=== PATIENT | female | born 1985 | race Caucasian/White ===

== ENCOUNTER 2018-04-21 11:09 | Emergency (ER) | payer OTHER ==
[~2018-04-21] VITALS: Ht 160 cm; Wt 96.8 kg
[2018-04-21] MEDS ORDERED: ONDANSETRON ODT 4 MG PO ONE (12:00)
[2018-04-21] MEDS ORDERED: SODIUM CHLORIDE 0.9% 1,000ML IVBOLUS ONE (12:00)
[2018-04-21] MEDS ORDERED: SODIUM CHLORIDE FLUSH 10ML SYR IVF ONE (12:00)
[2018-04-21] MEDS ORDERED: MORPHINE SULFATE 4 MG/ML, 1ML IVPush PRN (12:00)
[2018-04-21] MEDS ORDERED: MORPHINE SULFATE 4 MG/ML, 1ML ONE (12:10)
[2018-04-21] MEDS ORDERED: ONDANSETRON ODT 4 MG ONE (12:10)
[2018-04-21 12:20] LABS: BASOPHILS # (AUTO) 0.07 x10^3/uL (0-0.1); BASOPHILS % (AUTO) 1 % (0-1); EOSINOPHILS # (AUTO) 0.11 x10^3/uL (0-0.4); EOSINOPHILS % (AUTO) 1 % (1-7); LYMPHOCYTES # (AUTO) 1.84 x10^3/uL (1-3.4); LYMPHOCYTES % (AUTO) 22 % (22-44); MD NO; MEAN CORPUSCULAR HEMOGLOBIN 23.8 pg (27.0-34.8); MEAN CORPUSCULAR HGB CONC 31.8 g/dL (32.4-35.8); MEAN CORPUSCULAR VOLUME 74.8 fL (80-100); MEAN PLATELET VOLUME 8.3 fL (7.4-10.4); MONOCYTES # (AUTO) 0.45 x10^3/uL (0.2-0.8); MONOCYTES % (AUTO) 5 % (2-9); NEUTROPHILS # (AUTO) 5.84 x10^3/uL (1.8-6.8); NEUTROPHILS % (AUTO) 70 % (42-75); PLATELET COUNT 358 x10^3/uL (130-400); RED BLOOD COUNT 5.01 x10^6/uL (3.82-5.3); RED CELL DISTRIBUTION WIDTH 17.3 % (9.6-15.2)
[2018-04-21 15:04] VITALS: BP 126/59
== END 2018-04-21 15:06 | disposition home or self-care (01) ==
LOC: ED 14:32
DX: N83.02 Follicular cyst of left ovary (principal); N83.01 Follicular cyst of right ovary; N93.9 Abnormal uterine and vaginal bleeding, unspecified
CPT/HCPCS: 36415; 74177; 76830; 84702; 85025; 86901; 96374; 99285; J7030; Q0162

== ENCOUNTER 2018-05-14 07:27 | Emergency (ER) | payer OTHER ==
[~2018-05-14] VITALS: Ht 160 cm; Wt 93.6 kg
[2018-05-14 07:31] VITALS: BP 136/94
[2018-05-14] MEDS ORDERED: IBUPROFEN 200 MG TABLET PO ONE (08:00)
[2018-05-14] MEDS ORDERED: IBUPROFEN 800 MG TABLET ONE (08:07)
== END 2018-05-14 09:42 | disposition home or self-care (01) ==
LOC: ED 09:40
DX: M25.461 Effusion, right knee (principal); M19.90 Unspecified osteoarthritis, unspecified site; W10.9XXA Fall (on) (from) unspecified stairs and steps, initial encounter; Y93.89 Activity, other specified; Y92.009 Unspecified place in unspecified non-institutional (private) residence as the place of occurrence of the external cause; Y99.8 Other external cause status
CPT/HCPCS: 99283

== ENCOUNTER → 2018-05-31 | Outpatient (CLI) | payer OTHER | END | disposition home or self-care (01) | LOC: CFH 12:24 | PROVIDERS: ATTEND Physician Assistant Surgical | DX: M65.861 Other synovitis and tenosynovitis, right lower leg (principal); M25.461 Effusion, right knee; R60.0 Localized edema ==

== ENCOUNTER → 2018-07-13 | Outpatient (CLI) | payer OTHER ==
[~2018-07-13] MED LIST: AMIT25TA PO; CERT400S SC
== END | disposition home or self-care (01) ==
LOC: STAR 08:08
PROVIDERS: ATTEND Orthopaedic Surgery
DX: Z02.9 Encounter for administrative examinations, unspecified (principal)

== ENCOUNTER 2018-07-19 06:03 | Day surgery (SDC) | payer OTHER ==
[2018-07-13 08:35] VITALS: BP 138/88
[~2018-07-19] VITALS: Ht 160 cm; Wt 89.3 kg
[2018-07-19] MEDS ORDERED: ROPIvacaine/PF 0.5%, 30 ML ONE (06:23)
[2018-07-19] MEDS ORDERED: LIDOCAINE 1%-EPI 1:100K, 30ML ONE (06:24)
[2018-07-19] MEDS ORDERED: LACTATED RINGERS 1,000 ML IV SCH (06:39)
[2018-07-19] MEDS ORDERED: MIDAZOLAM 1 MG/ML, 2ML ONE (07:25)
[2018-07-19] MEDS ORDERED: FENTANYL PF 100 MCG/2ML ONE ×3 (07:25→09:49)
[2018-07-19 07:26] LABS: HCG UR SG 1.026 (1.003-1.030)
[2018-07-19] MEDS ORDERED: DEXAMETHASONE 4 MG/ML, 1ML ONE (07:46)
[2018-07-19] MEDS ORDERED: ONDANSETRON 2MG/ML, 2ML ONE (07:46)
[2018-07-19] MEDS ORDERED: PROPOFOL 10 MG/ML, 20ML ONE (07:46)
[2018-07-19] MEDS ORDERED: PROPOFOL 10 MG/ML, 50ML ONE (07:46)
[2018-07-19] MEDS ORDERED: CEFAZOLIN 1,000 MG ONE (07:46)
[2018-07-19] MEDS ORDERED: ONDANSETRON 2MG/ML, 2ML IV PRN (08:30)
[2018-07-19] MEDS ORDERED: MORPHINE SULFATE 4 MG/ML, 1ML IVPush PRN (08:30)
[2018-07-19] MEDS ORDERED: PROMETHAZINE 25 MG SUPP PR PRN (08:30)
[2018-07-19] MEDS ORDERED: DIPHENHYDRAMINE 50 MG/ML, 1ML IVPush PRN (08:30)
[2018-07-19] MEDS ORDERED: ACETAMINOPHEN 325 MG TABLET PO PRN (08:30)
[2018-07-19] MEDS ORDERED: EPHEDRINE 50 MG/ML, 1ML IVPush PRN (08:30)
[2018-07-19] MEDS ORDERED: OXYcodone 5 MG/5 ML ORAL.SOL UDC PO PRN (08:30)
[2018-07-19] MEDS ORDERED: PROMETHAZINE 12.5 MG SUPP PR PRN (08:30)
[2018-07-19] MEDS ORDERED: MEPERIDINE/PF 25MG/0.5ML IVPush PRN (08:30)
[2018-07-19] MEDS ORDERED: LABETALOL 5MG/ML, 20ML IV PRN (08:30)
[2018-07-19] MEDS ORDERED: ONDANSETRON ODT 8 MG PO PRN (08:30)
[2018-07-19] MEDS ORDERED: PROMETHAZINE 25 MG/ML, 1ML IV PRN (08:30)
[2018-07-19] MEDS ORDERED: EPHEDRINE 50 MG/ML, 1ML IM PRN (08:30)
[2018-07-19] MEDS ORDERED: FENTANYL PF 100 MCG/2ML IV PRN (08:30)
[2018-07-19] MEDS ORDERED: MIDAZOLAM 1 MG/ML, 2ML IV PRN (08:30)
[2018-07-19] MEDS ORDERED: ACETAMINOPHEN 650 MG/20.3 ML UDC ONE (09:49)
[2018-07-19] MEDS ORDERED: OXYcodone 5 MG/5 ML ORAL.SOL UDC ONE (09:50)
[2018-07-19 10:21] LABS: CELLS COUNTED 1728
== END 2018-07-19 11:45 | disposition home or self-care (01) ==
LOC: OUT 06:03
PROVIDERS: ATTEND Orthopaedic Surgery
DX: M94.261 Chondromalacia, right knee (principal); M65.861 Other synovitis and tenosynovitis, right lower leg; M06.861 Other specified rheumatoid arthritis, right knee; Z88.8 Allergy status to other drugs, medicaments and biological substances
CPT/HCPCS: 29876; 81025; 87070; 87075; 87205; 88112; 88305; 89051; 89060; J0690; J1100; J2250; J2405; J2704; J2795; J3010; J3490; J7120

== ENCOUNTER 2018-08-21 09:26 | Emergency (ER) | payer OTHER ==
[~2018-08-21] VITALS: Ht 160 cm; Wt 89.8 kg
[2018-08-21 09:54] LABS: BASOPHILS # (AUTO) 0.12 x10^3/uL (0-0.1); BASOPHILS % (AUTO) 1 % (0-1); EOSINOPHILS # (AUTO) 0.21 x10^3/uL (0-0.4); EOSINOPHILS % (AUTO) 3 % (1-7); LYMPHOCYTES # (AUTO) 2.32 x10^3/uL (1-3.4); LYMPHOCYTES % (AUTO) 28 % (22-44); MD NO; MEAN CORPUSCULAR HEMOGLOBIN 24.2 pg (27.0-34.8); MEAN CORPUSCULAR HGB CONC 31.7 g/dL (32.4-35.8); MEAN CORPUSCULAR VOLUME 76.5 fL (80-100); MEAN PLATELET VOLUME 7.8 fL (7.4-10.4); MONOCYTES # (AUTO) 0.43 x10^3/uL (0.2-0.8); MONOCYTES % (AUTO) 5 % (2-9); NEUTROPHILS # (AUTO) 5.37 x10^3/uL (1.8-6.8); NEUTROPHILS % (AUTO) 64 % (42-75); PLATELET COUNT 373 x10^3/uL (130-400); RED BLOOD COUNT 5.04 x10^6/uL (3.82-5.3); RED CELL DISTRIBUTION WIDTH 17.8 % (9.6-15.2)
[2018-08-21 10:05] LABS: ALBUMIN 3.4 g/dL (3.4-5.0); ANION GAP 5 mmol/L (5-15); CALCIUM 8.9 mg/dL (8.5-10.1); CHLORIDE 106 mmol/L (98-107); CREATININE 0.83 mg/dL (0.55-1.02)
--- NOTE | 2018-08-21 10:29 | NUR ---
Pt at ultrasound at this time.
--- NOTE | 2018-08-21 10:33 | NUR ---
First contact with pt. Per pt, "I am feeling like I have ovarian cysts, it started at 3 am, I have a history of them. The pain is mayda in the middle (periumbillical) and it goes to the right (RLQ) and the back (right flank). I have really bad nausea that comes in waves." Pt denies vomitting, diarrhea, cp, sob, trauma, or fever. All safety measures in place NADN. Pt connected to NIBP and continous pulse ox.
[2018-08-21 11:17] LABS: MICROSCOPIC NOT IND
[2018-08-21 11:24] LABS: CULTURE INDICATED? NO
[2018-08-21] MEDS ORDERED: ONDANSETRON ODT 4 MG PO ONE (11:30)
[2018-08-21] MEDS ORDERED: HYDROcodone/APAP 5/325 TABLET PO ONE (11:30)
--- NOTE | 2018-08-21 11:31 | NUR ---
Warm blankets provided for comfort measures.
[2018-08-21] MEDS ORDERED: ONDANSETRON ODT 4 MG ONE (11:45)
[2018-08-21] MEDS ORDERED: HYDROcodone/APAP 5/325 TABLET ONE (11:46)
[2018-08-21 11:49] VITALS: BP 124/91
--- NOTE | 2018-08-21 11:51 | NUR ---
Provided medications per EMAR. Pt appreciative. NADN. No other needs requested at this time. Pt's pain is a 6/10 in RLQ and R flank.
--- NOTE | 2018-08-21 12:36 | NUR ---
TASK RN: Patient/Caregiver given discharge instructions and they have confirmed that they understand the instructions. Patient ambulatory with steady gait.
== END 2018-08-21 12:52 | disposition home or self-care (01) ==
LOC: ED 11:11
DX: R10.31 Right lower quadrant pain (principal); R10.32 Left lower quadrant pain
CPT/HCPCS: 36415; 76830; 80048; 81003; 82040; 84703; 85025; 99284; Q0162

== ENCOUNTER → 2018-12-15 | Outpatient (CLI) | payer OTHER ==
[~2018-12-15] MED LIST changes: +CHOL100011 PO; +CYCL-259 PO; +MEDR150D3 INJ; +SERT100T PO
== END | disposition home or self-care (01) ==
LOC: STAR 08:52
PROVIDERS: ATTEND Orthopaedic Surgery
DX: Z02.9 Encounter for administrative examinations, unspecified (principal)

== ENCOUNTER 2018-12-20 10:48 | Day surgery (SDC) | payer OTHER ==
[~2018-12-20] VITALS: Ht 160 cm; Wt 84.6 kg
[~2018-12-20 10:48] MED LIST changes: +CEFAZOLIN 1,000 MG ONE; +DEXAMETHASONE 4 MG/ML, 1ML ONE; +FENTANYL PF 250 MCG/5ML ONE; +KETOROLAC 30 MG/1 ML ONE; +LIDOCAINE 1%-EPI 1:100K, 50ML ONE; +MIDAZOLAM 1 MG/ML, 2ML ONE; +ONDANSETRON 2MG/ML, 2ML ONE; +PROPOFOL 10 MG/ML, 20ML ONE; +ROPIvacaine/PF 0.5%, 30 ML ONE; +SODIUM CHLORIDE 0.9% PF 10ML ONE
[2018-12-20] MEDS ORDERED: SCOPOLAMINE PATCH, 1.5MG PATCH.TD72 TD ONE (10:57)
[2018-12-20] MEDS ORDERED: HALOPERIDOL 5 MG/ML IV PRN (11:00)
[2018-12-20] MEDS ORDERED: PROMETHAZINE 12.5 MG SUPP PR PRN (11:00)
[2018-12-20] MEDS ORDERED: hydrALAzine 20 MG/ML, 1ML IV PRN (11:00)
[2018-12-20] MEDS ORDERED: PROMETHAZINE 25 MG/ML, 1ML IV PRN (11:00)
[2018-12-20] MEDS ORDERED: ONDANSETRON 2MG/ML, 2ML IV PRN (11:00)
[2018-12-20] MEDS ORDERED: HYDROmorphone 2 MG/ML, 1ML IVPush PRN (11:00)
[2018-12-20] MEDS ORDERED: PROMETHAZINE 25 MG/ML, 1ML IM PRN ×2 (11:00)
[2018-12-20] MEDS ORDERED: LABETALOL 5MG/ML, 20ML IV PRN (11:00)
[2018-12-20] MEDS ORDERED: MEPERIDINE/PF 25MG/0.5ML IVPush PRN (11:00)
[2018-12-20] MEDS ORDERED: PROMETHAZINE 25 MG SUPP PR PRN (11:00)
[2018-12-20] MEDS ORDERED: ACETAMINOPHEN 325 MG TABLET PO PRN ×2 (11:00→14:00)
[2018-12-20] MEDS ORDERED: OXYcodone 5 MG/5 ML ORAL.SOL UDC PO PRN (11:00)
[2018-12-20] MEDS ORDERED: ONDANSETRON ODT 8 MG PO PRN (11:00)
[2018-12-20] MEDS ORDERED: MORPHINE SULFATE 4 MG/ML, 1ML IVPush PRN (11:00)
[2018-12-20 11:02] VITALS: BP 136/90
[2018-12-20] MEDS ORDERED: LACTATED RINGERS 1,000 ML IV SCH (11:05)
[2018-12-20 11:37] LABS: HCG UR SG 1.029 (1.003-1.030)
[2018-12-20] MEDS ORDERED: FENTANYL PF 100 MCG/2ML ONE ×2 (13:21→13:52)
[2018-12-20] MEDS ORDERED: OXYcodone 5 MG/5 ML ORAL.SOL UDC ONE (13:22)
[2018-12-20] MEDS ORDERED: ACETAMINOPHEN 650 MG/20.3 ML UDC ONE (13:22)
[2018-12-20] MEDS ORDERED: ACETAMINOPHEN 325 MG TABLET ONE (13:23)
[2018-12-20] MEDS: FENTANYL PF 100 MCG/2ML IV PRN ×2 (13:25→13:40)
[2018-12-20] MEDS ORDERED: MORPHINE SULFATE 4 MG/ML, 1ML ONE (13:53)
[2018-12-20] MEDS ORDERED: METOPROLOL 1 MG/ML, 5ML ONE (13:59)
[2018-12-20] MEDS ORDERED: METOPROLOL 1 MG/ML, 5ML IV PRN (14:00)
== END 2018-12-20 16:20 | disposition home or self-care (01) ==
LOC: OUT 10:48
PROVIDERS: ATTEND Orthopaedic Surgery
DX: S83.232A Complex tear of medial meniscus, current injury, left knee, initial encounter (principal); S83.282A Other tear of lateral meniscus, current injury, left knee, initial encounter; M94.262 Chondromalacia, left knee; M79.7 Fibromyalgia; M06.862 Other specified rheumatoid arthritis, left knee; M06.861 Other specified rheumatoid arthritis, right knee; Z86.14 Personal history of Methicillin resistant Staphylococcus aureus infection; X58.XXXA Exposure to other specified factors, initial encounter; Y93.89 Activity, other specified
CPT/HCPCS: 29880; 81025; J0690; J1100; J1885; J2250; J2270; J2405; J2704; J2795; J3010; J7120